=== PATIENT | female | born 1950 | race Caucasian/White ===

== ENCOUNTER 2016-05-22 12:48 | Emergency (ER) | payer MEDICARE ==
[2016-05-22 13:01] VITALS: BP 138/76
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
--- OUTSIDE RECORDS SUMMARY | 2016-05-22 13:33 | XMS REPORT | Summary of Care ---
:1950 Author Organization [facility] Address [address] [place] [id number] Care Team Providers Name Role Phone Nirmal Leung Primary Care Physician Encounter Date(s): 07/22/15 - 07/22/[address] [id number] Discharge Disposition: 01 Discharged to Home or Self Care Attending Physician: NIKOS Briones Admitting Physician: NIKOS Briones Vital Signs No data available for this [...] Erythromycin Base Active OxyCODONE Hydrochloride2 vomittin Active [id number] Medications allopurinol 100 mg oral tablet 2 tab(s), Oral, Daily, 0 Refill(s) Start Date: 10/12/13 Status: OrderedamLODIPine 5 mg oral tablet 1 tab(s), Oral, Daily, # 30 tab(s), 0 Refill(s), Start Date: 10/22/14 10:19:00 CDT Start Date: 10/22/14 Stop Date: 04/22/15 Status: Discontinuedammonium lactate 10% topical cream 1 caleb, Topical, BID, # 42 gm, 0 Refill(s), Start Date: 04/22/15 14:26:00 [employer] Start Date: 04/22/15 Status: Orderedamoxicillin-clavulanate 500 mg-125 mg oral tablet 1 tab(s), Oral, q12hr interval, # 10 tab(s), 0 Refill(s), Start Date: 07/22/15 13:24:00 CDT, Pharmacy: [place], [place] Start Date: 07/22/15 Stop Date: 07/27/15 Status: OrderedAvapro 75 mg oral tablet 1 tab(s), Oral, Daily, # 30 tab(s), 5 Refill(s), Start Date: 05/23/14 11:00:00 CDT, Pharmacy: [place], [place] Start Date: 05/23/14 Stop Date: 05/23/14 [...] Daily, 0 Refill(s), Start Date: 04/22/15 14:26:00 [employer] Start Date: 04/22/15 Stop Date: 07/22/15 Status: [...] Refill(s), Start Date: 11/22/13 13:46:00 CDT, Pharmacy: [place], [place] Start Date: 11/22/13 Stop Date: 07/09/14 Status: CompletedLasix 40 mg oral tablet 1 tab(s), Oral, Daily, 0 Refill(s) Start Date: 10/12/13 Stop Date: 11/22/13 Status: DiscontinuedLasix 40 mg oral tablet 1 tab(s), Oral, Daily, Take 1-40mg tab twice daily x3 days then resume once daily, # 33 tab(s), 11 Refill(s), Start Date: 07/09/14 14:47:53 CDT, Pharmacy: [place], [place] Special Instructions: Take 1-40mg tab twice daily x3 days then resume once daily Start Date: 07/09/14 Stop Date: 07/22/15 Status: Discontinuedlevothyroxine 25 mcg (0.025 mg) oral tablet 1 tab(s), Oral, Daily, # 30 tab(s), 0 Refill(s), Start Date: 04/22/15 14:25:00 [employer] Start Date: 04/22/15 Status: OrderedLexapro 10 mg oral tablet 1 tab(s), Oral, Daily, # 30 tab(s), 0 Refill(s), Start Date: 07/09/14 13:57:00 CDT Start Date: 07/09/14 Stop Date: 07/22/15 Status: Completedlisinopril 5 mg oral tablet 1 tab(s), Oral, Daily, # 90 tab(s), 1 Refill(s), Start Date: 05/23/14 15:42:00 CDT, Pharmacy: [place], [place] Start Date: 05/23/14 Stop Date: 10/22/14 [...] [Reference Range]: 1 Sodium Lvl [135-144 mEq/L] 134 mEq/L *LOW* (07/22/15 11:19 AM) Potassium Lvl [3.3-4.8 mEq/L] 4.5 mEq/L (07/22/15 11:19 AM) Chloride Lvl [98-107 mEq/L] 96 mEq/L *LOW* (07/22/15 11:19 AM) Bicarbonate Lvl [22-30 mmol/L] 24 mmol/L (07/22/15 11:19 AM) Anion Gap [10.0-20.0] 18.5 (07/22/15 11:19 AM) Glucose Lvl [70-108 mg/dL] 152 mg/dL *HI* (07/22/15 11:19 AM) BUN [7-21 mg/dL] 40 mg/dL *HI* (07/22/15 11:19 AM) Creatinine Lvl [0.50-1.20 mg/dL] 2.27 mg/dL *HI* (07/22/15 11:19 AM) BUN/Creat Ratio 17.6 *NA* (07/22/15 11:19 AM) eGFR AA [>=60] 26 *LOW* (07/22/15 11:19 AM) eGFR RODRÍGUEZ [>=60] 22 *LOW* (07/22/15 11:19 AM) Calcium Lvl [8.6-10.2 mg/dL] 10.2 mg/dL (07/22/15 11:19 AM) Albumin Lvl [3.5-5.2 g/dL] 3.8 g/dL (07/22/15 11:19 AM) Magnesium Lvl [1.6-2.4 mg/dL] 1.7 mg/dL (07/22/15 11:19 AM) Phosphorus Lvl [2.7-4.5 mg/dL] 4.4 mg/dL (07/22/15 11:19 AM) Estimated Creatinine Clearance 29.18 mL/min (07/22/15 12:18 PM) Immunizations No data available for this [...]
[2016-05-22 13:52] LABS: Hematocrit 39.3 % (37.0-47.0); Mean Cell Volume 82.4 fl (78-100); Mean Corpuscular Hemoglobin 27.3 pg (27-31); Mean Corpuscular Hgb Conc 33.1 g/dl (32-36); Mean Platelet Volume 10.1 fl (6.0-9.5); Neutrophil # 5.4 K/mm3 (1.3-6.0); Neutrophil % 67.7 % (42-75.0); Platelet Count 229 K/mm3 (150-450); Red Blood Count 4.77 M/mm3 (4.2-5.4); Red Cell Distribution Width 14.3 % (11.5-14.0); White Blood Count 7.9 K/mm3 (4.0-10.5)
[2016-05-22 14:03] LABS: Albumin * 3.2 gm/dl (3.4-5.0); Anion Gap 13.4 mmol/L (6.8-13.8); BUN/Creatinine Ratio 21.5 (9.0-21.6); Bilirubin, Total 0.4 mg/dL (0.0-1.1); CRP 3.2 mg/dL (0.0-0.9); Ca. Corrected For Albumin 9.1 mg/dL (8.4-10.2); Calcium * 8.8 mg/dL (7.9-10.9); Carbon Dioxide 26.8 mmol/L (24-32.6); Potassium 4.2 mmol/L (3.4-4.6); Total Protein 7.3 gm/dL (6.2-8.2)
[2016-05-22 14:29] LABS: Hemoglobin A1C 9.5 % (4.00-6.0)
--- NOTE | 2016-05-22 14:55 | ERNOTE ---
Lower Extremity HPI - Narrative Date of Service: 05/22/16 - General Lower Extremities Pain: foot: left, 1st toe: left Time Seen by Provider: 05/22/16 12:56 Source: patient Exam Limitations: no limitations - Immun/Allergies/Home Medications Immunizations: IMMUNIZATION HX Immunizations Up to Date Yes History of Influenza Vaccine No Hx Pneumococcal Vaccination No Allergies/Adverse Reactions: Allergies Allergy/AdvReac Type Severity Reaction Status Date / Time acetaminophen [From Percocet] AdvReac Mild Vomiting Verified 05/22/16 13:01 ciprofloxacin AdvReac Mild Vomiting Verified 05/22/16 13:01 erythromycin base AdvReac Mild SHAKEY Verified 05/22/16 13:01 [Erythromycin Base] omeprazole AdvReac Mild Diarrhea Verified 05/22/16 13:01 oxycodone HCl [From Percocet] AdvReac Mild Vomiting Verified 05/22/16 13:01 Home Medications: HOME MEDICATIONS Meclizine HCl 25 mg PO QID PRN 04/03/13 [Last Taken Unknown] Tramadol HCl 50 mg PO QID PRN 04/03/13 [Last Taken Unknown] Nitroglycerin [Nitrostat] 0.3 mg SL Q5MX3 01/07/14 [Last Taken Unknown] Metoclopramide HCl [Reglan] 20 mg PO QID 08/11/14 [Last Taken Unknown] Furosemide 20 mg PO DAILY 05/15/15 [Last Taken Unknown] Albuterol Sulfate [Proair Hfa] 2 puff IH Q4H PRN 12/03/15 [Last Taken Unknown] Allopurinol [Zyloprim] 200 mg PO QPM 12/03/15 [Last Taken Unknown] Ammonium Lactate [Lac-Hydrin] 1 appl TP BID 12/03/15 [Last Taken Unknown] Blood Sugar Diagnostic, Drum [Accu-Chek Compact] 1 each MC DAILY 12/03/15 [Last Taken Unknown] Glimepiride [Amaryl] 4 mg PO BID@0700,1700 12/03/15 [Last Taken Unknown] Hydrocodone/Acetaminophen [Lortab 5-325 mg Tablet] 1 each PO QID PRN 12/03/15 [ Last Taken Unknown] Levothyroxine Sodium [Synthroid] 25 mcg PO DAILY 12/03/15 [Last Taken Unknown] Metoprolol Tartrate [Lopressor] 50 mg PO BID 12/03/15 [Last Taken Unknown] Mirtazapine 7.5 mg PO HS 12/03/15 [Last Taken Unknown] Pregabalin [Lyrica] 25 mg PO BID 12/03/15 [Last Taken Unknown] Simvastatin [Zocor] 40 mg PO HS 12/03/15 [Last Taken Unknown] rOPINIRole HCL [Requip] 0.5 mg PO HS 12/03/15 [Last Taken Unknown] Cephalexin Monohydrate [Keflex] 500 mg PO QID #28 cap 05/22/16 [Last Taken Unknown] Lisinopril [Zestril] 2.5 mg PO 3XW 05/22/16 [Last Taken Unknown] Sulfamethoxazole/Trimethoprim [Bactrim Ds] 1 tab PO BID #14 tablet 05/22/16 [ Last Taken Unknown] - Pain Score Pain Score #1 Pain Score: 1 - History of Present Illness Narrative: Patient is 65 year old female patient with PMH of DM2 and MRSA who presents to ED with c/o left great toe and foot redness and swelling. Patient states she noticed redness to top of left great toe beginning last Tuesday. States she noticed "pus pocket" on cuticle area of left great toe and when pressure was applied, patient states it "popped and pus came out". States now presents with redness and swelling to left great toe and top of left foot. Denies pain, fever , chills or body aches. States blood sugars have been controlled. States she has chronic swelling in bilateral feet yet left foot slightly more swollen than left. Able to ambulate without difficulty. Date (Duration): 05/22/16 Occurred: this morning Location of Incident: home Method of Injury: Reports: no apparent injury Reason for Fall: Reports: other - patient did not fall, denies injury Loss of Consciousness: Reports: no loss of consciousness Modifying Factors - (Improves): Reports: rest Modifying Factors - (Worsens): Reports: movement Associated Symptoms: Denies: unable to bear weight, dizzy/light headedness, sensory loss, chest pain Other Injuries: Denies: none Subsequent Symptoms: Denies: sensory loss, numbness, motor loss, bowel/bladder problem Review of Systems - Review of Systems Constitutional: Absent: recent illness, fever, chills, diaphoresis, weakness, fatigue EYE: Present: no symptoms reported ENT: Present: no symptoms reported Respiratory: Absent: shortness of breath, cough Cardiology: Present: no symptoms reported. Absent: chest pain Gastrointestinal/Abdominal: Absent: nausea, vomiting, diarrhea, abdominal pain Genitourinary: Present: no symptoms reported Musculoskeletal: Present: no symptoms reported Skin: Present: change in color Neurological: Present: no symptoms reported Endocrine: Present: no symptoms reported Hematologic/Lymphatic: Present: no symptoms reported - Patient's Past Medical History Patient History - Medical: Anemia, Arthritis, Diabetes Type 2, GERD, Obesity, Renal Disease, Renal Failure Patient History - Cardiac/Respiratory: Arrhythmias, Hypertension, Hyperlipidemia , Sleep Apnea Patient History - Cancer: No Hx of Cancer Patient History - Surgical Procedures: Cholecystectomy, Colonoscopy, EGD, Tubal Ligation, T & A Patient History - Other: None - Family History Mother Family History - Medical: Diabetes Type 2 Family History - Cardiac/Respiratory: No pertinent hx Father Family History - Medical: History Unknown Family History - Cardiac/Respiratory: History Unknown, Coronary Heart Disease, Other dad Family History - Medical: Family History - Cardiac/Respiratory: Myocardial Infarction - Social History Living Situations: spouse Abuse History: No History of abuse Psych History: Hx of Depression Smoking Status: Never smoker Do you dip or chew tobacco: No Alcohol Use: none Drug Use: none - Immunizations Immunizations Up to Date: Yes Hx Pneumococcal Vaccination: No History of Influenza Vaccine: No Physical Exam - Physical Exam General Appearance: Present: wd/wn, alert, no apparent distress Eye Exam: Normal inspection: bilateral, PERRL: bilateral Ears, Nose, Throat: Present: normal ENT inspection Neck: Present: normal inspection, nontender Respiratory: Present: no respiratory distress, normal breath sounds, no accessory muscle use, chest nontender, lungs clear Cardiovascular/Chest: Present: regular rate, rhythm, no murmur, normal peripheral pulses Peripheral Pulses: N=norm/S=strong/W=weak/B=bound/A=absent: Radial (R): Normal, Radial (L): Normal Gastrointestinal/Abdominal: Present: normal bowel sounds, nontender, nondistended, soft, no organomegaly Rectal Exam: Present: deferred Back Exam: Present: normal inspection, normal range of motion, no CVA tenderness , no vertebral tenderness Extremity Exam: Present: normal inspection, non-tender, normal range of motion, no edema, other - chronic bilateral pedal swelling Neurological Exam: Present: alert, oriented, normal mood/affect, no motor/ sensory deficits Skin Exam: Present: normal color, warm/dry, other - redness to left great toe and top of left foot Pelvic Exam: Present: deferred ED Progress - Results and Orders Patient's Lab Results:: I have reviewed the patient's lab results. - Vital Signs Patient's Vital Signs:: I have reviewed the patient's vital signs. Vital Signs: Vital Signs 05/22/16 12:54 Temperature 36.2 C L Pulse Rate 101 H Respiratory 18 Rate Blood Pressure 138/76 O2 Sat by Pulse 96 Oximetry - X-Ray X-Ray #1 X-Ray: foot Interpretation: Reviewed by me X-ray Comments: No obvious fracture or deformity - Progress/Reassessment Chief Complaint: Foot Injury/Pain Progress:: Re-examined Departure Clinical Impression: MRSA cellulitis Cellulitis Qualifiers: Site of cellulitis: extremity Site of cellulitis of extremity: lower extremity Laterality: left Qualified Code(s): L03.116 - Cellulitis of left lower limb - Departure Disposition: Home Follow Up Needed Condition: Good Instructions: Diabetes and Foot Care, Cellulitis, Adult, [id number] Additional Instructions: Return tomorrow if redness/swelling above black line on left foot. Take antibiotics as directed, begin Bactrim first dose tonight and begin Keflex tomorrow. Soak left foot twice daily in warm/soapy water. Return to ED if redness/swelling worsens or begin to experience fever, chills, body aches or notice red streaks up leg. Call physician Tuesday for follow up later in the week Referrals: Neel Elise MD [Primary Care Provider] - Prescriptions: Cephalexin Monohydrate [Keflex] 500 mg PO QID #28 cap Sulfamethoxazole/Trimethoprim [Bactrim Ds] 1 tab PO BID #14 tablet
== END 2016-05-22 14:50 | disposition home or self-care (01) ==
LOC: ER 12:48
DX: L03.116 Cellulitis of left lower limb (principal); B95.62 Methicillin resistant Staphylococcus aureus infection as the cause of diseases classified elsewhere; E11.9 Type 2 diabetes mellitus without complications; E78.5 Hyperlipidemia, unspecified; I10 Essential (primary) hypertension; I49.9 Cardiac arrhythmia, unspecified; N19 Unspecified kidney failure

== ENCOUNTER 2016-11-16 06:57 | Day surgery (SDC) | payer MEDICARE ==
[~2016-11-16 06:57] MED LIST: RINGER'S SOLUTION,LACTATED 1,000 ML IV PRN
[2016-11-16 07:17] LABS: Hematocrit 40.7 % (37.0-47.0); Hemoglobin 13.8 gm/dL (12.5-16.0); Mean Cell Volume 84.8 fl (78-100); Mean Corpuscular Hemoglobin 28.8 pg (27-31); Mean Corpuscular Hgb Conc 33.9 g/dl (32-36); Mean Platelet Volume 10.2 fl (6.0-9.5); Neutrophil # 6.1 K/mm3 (1.3-6.0); Neutrophil % 60.4 % (42-75.0); Platelet Count 223 K/mm3 (150-450); Red Cell Distribution Width 13.7 % (11.5-14.0)
[2016-11-16] MEDS: RINGER'S SOLUTION,LACTATED 1,000 ML IV ONE (07:55)
[2016-11-16] MEDS ORDERED: IBUPROFEN 600 MG TABLET PO PRN (08:44)
[2016-11-16] MEDS: ACETAMINOPHEN 500 MG TABLET PO ONE (09:48)
--- NOTE | 2016-11-16 09:54 | OR ---
Operative Report - Dictated Report Narrative: Operative Report 11/16/16 Hysteroscopy Dilatation and Curettage Preoperative Diagnosis: Postmenopausal Bleeding Postoperative Diagnosis: Postmenopausal Bleeding, Cervical Stenosis Procedure: Hysteroscopy Dilatation and Curettage Surgeon: Ramya Walton M.D. Anesthesia: Walt Malloy CRNA, IV sedation Findings: Cervical stenosis. Sound 10 cm. There was no evidence of submucosal fibroid. Questionable presence of polypoid tissue. Fluids: 150 ml EBL: Minimal Drains: None Complications: None Condition: Stable Pathology: Endometrial curettings Procedure: The patient was taken to the operating room with IV fluids running. She was placed in the dorsal lithotomy position after anesthesia was induced. A bivalve speculum was placed in the vagina. The anterior lip of the cervix was grasped with a single-tooth tenaculum. Uterine sound was unable to pass. 2.5 mm hysteroscope used to navigate through the endometrial canal. Uterine sound was 11 cm with hysteroscope. The cervix was dilated with Jaiv dilators. The hysteroscope was introduced into the endometrial cavity. The cavity was distended with normal saline. [place] were visualized bilaterally. There was a questionable polyp but no evidence of submucosal fibroid. The hysteroscope was removed. The cavity was sharply curetted without difficulty. The hysteroscope was once again introduced into the cavity. The cavity was completely curetted. The hysteroscope was removed. The single-tooth tenaculum was removed. Sites were hemostatic. The speculum was removed from the vagina. Sponge counts were correct 2. The patient tolerated the procedure well.
[2016-11-16 11:02] VITALS: BP 136/74
== END 2016-11-16 06:58 | disposition home or self-care (01) ==
LOC: AMB 06:57
PROVIDERS: ATTEND Obstetrics & Gynecology
PROC: 0UDB8ZX Extraction of Endometrium, Via Natural or Artificial Opening Endoscopic, Diagnostic (ICD-10-PCS; principal; 2016-11-16 08:00)
DX: N95.0 Postmenopausal bleeding (principal); N88.2 Stricture and stenosis of cervix uteri; I12.9 Hypertensive chronic kidney disease with stage 1 through stage 4 chronic kidney disease, or unspecified chronic kidney disease; E11.22 Type 2 diabetes mellitus with diabetic chronic kidney disease; N18.3 Chronic kidney disease, stage 3 (moderate); J45.909 Unspecified asthma, uncomplicated; D63.1 Anemia in chronic kidney disease; K21.9 Gastro-esophageal reflux disease without esophagitis; E78.5 Hyperlipidemia, unspecified; E03.9 Hypothyroidism, unspecified; G47.33 Obstructive sleep apnea (adult) (pediatric); E66.01 Morbid (severe) obesity due to excess calories; Z68.41 Body mass index [BMI] 40.0-44.9, adult

== ENCOUNTER 2016-12-15 08:42 | Day surgery (SDC) | payer MEDICARE ==
[2016-12-15] MEDS ORDERED: RINGER'S SOLUTION,LACTATED 1,000 ML IV ONE (10:44)
[2016-12-15] MEDS ORDERED: RINGER'S SOLUTION,LACTATED 1,000 ML IV PRN (11:41)
[2016-12-15] MEDS ORDERED: CEFOXITIN SODIUM 2 GM in DEXTROSE 5 % IN WATER 100 ML IV ONE ×2 (12:30)
[2016-12-15 12:55] VITALS: BP 135/77
--- NOTE | 2016-12-15 18:09 | OR ---
Operative Report - Dictated Report Narrative: OPERATIVE REPORT DATE OF OPERATION: 12/15/2016 PREOPERATIVE DIAGNOSIS: Positive Cologuard test. POSTOPERATIVE DIAGNOSIS: 2mm polyp the cecum, 3 mm polyp at 45 cm, 3 mm polyp at 25 cm, and 4 mm polyp at 20 cm (pathology pending). Diverticulosis OPERATION: Colonoscopy with hot biopsy forceps polypectomies in the cecum, at 45 cm, and 25 cm. Snare polypectomy at 20 cm SURGEON: Elif Miller MD ANESTHESIA: TAN Campos CRNA INDICATIONS FOR PROCEDURE: The patient is a 65-year-old female referred by Dr. Jany Klein. Her last colonoscopy in 2006 was normal. She recently submitted a Cologuard test which was positive. There is no family history of colon cancer. She moves her bowels 3 times a day. FINDINGS: 2 mm polyp adjacent to the ileocecal valve. 3 mm polyp at 45 cm. 3 mm polyp at 25 cm. 4 mm polyp at 20 cm (pathology pending) NARRATIVE OF PROCEDURE: The patient was identified in the holding area, and prior to the administration of anesthetic, a multidisciplinary timeout was observed. With the patient in the left lateral position and after the administration of intravenous sedation, the perineum was inspected. There was no evidence of pilonidal disease or skin breakdown. The external appearance of the anus was normal. Sphincter tone was good. The flexible fiberoptic colonoscope was inserted into the rectum which was insufflated with air. The rectal mucosa and submucosal vascular pattern appeared normal, the prep was seen to be complete. The scope was advanced through the sigmoid colon, up the descending colon, and around the splenic flexure where the triangular haustral architecture of the transverse colon was seen. The scope was advanced across the transverse colon, around the hepatic flexure to the cecum, where the confluence of tenia and the ileocecal valve were identified. Adjacent to the ileocecal valve was a 2 mm area of polypoid change. This was biopsied and then thoroughly destroyed with electrocautery. The site was seen to be complete and hemostatic. The mucosa at this level appeared otherwise normal. The scope was then slowly withdrawn in a circular fashion so that all aspects of colonic mucosa were inspected. The colon was normal in course and caliber. The haustral architecture appeared well preserved throughout with no evidence of external compression. The mucosa and submucosal vascular pattern appeared normal, specifically there was no gross evidence to suggest colitis or inflammatory bowel disease and no AV malformations were seen. Sigmoid diverticulosis was noted. 3 mm polyps were encountered at 45 cm and 25 cm. These were biopsied and then thoroughly destroyed with electrocautery. Both sites appeared complete and hemostatic. An additional 4 mm adenomatous appearing polyp was encountered at 20 cm. This was removed with cautery snare. The base appeared complete and hemostatic. The polyp was retrieved and submitted to pathology. The scope was gradually withdrawn to the level of the rectum. As much insufflated air as possible was removed. The scope was withdrawn from the patient and the procedure terminated. The patient tolerated the anesthetic and procedure well without complication and was transferred back to the ambulatory surgery area awake and in stable condition. The patient remained stable throughout a period of postoperative observation. She initially complained of abdominal discomfort. She was given a single dose of IV Mefoxin to cover the instrumentation. She later reported her abdominal pain was better. She was able to tolerate by mouth intake, and was up without assistance. I shared the operative findings with the patient and her and she was given copies of the photographs which appear in the medical record. She was discharged home with instructions not to engage in hazardous activity today, but may resume normal activity tomorrow, and advance diet as tolerated. She is to continue those medications as listed in the history and physical exam. I made arrangements to contact her with the biopsy reports and will make additional recommendations for treatment and follow-up based upon those results. Reviewed and electronically signed
== END 2016-12-15 08:43 | disposition home or self-care (01) ==
LOC: AMB 08:42
PROVIDERS: ATTEND Surgery
PROC: 0DBE8ZX Excision of Large Intestine, Via Natural or Artificial Opening Endoscopic, Diagnostic (ICD-10-PCS; 2016-12-15)
PROC: 0DBE8ZX Excision of Large Intestine, Via Natural or Artificial Opening Endoscopic, Diagnostic (ICD-10-PCS; 2016-12-15)
PROC: 0DBH8ZX Excision of Cecum, Via Natural or Artificial Opening Endoscopic, Diagnostic (ICD-10-PCS; principal; 2016-12-15 09:50)
DX: Z12.11 Encounter for screening for malignant neoplasm of colon (principal); K63.5 Polyp of colon; D37.4 Neoplasm of uncertain behavior of colon; K57.30 Diverticulosis of large intestine without perforation or abscess without bleeding; I12.9 Hypertensive chronic kidney disease with stage 1 through stage 4 chronic kidney disease, or unspecified chronic kidney disease; E11.22 Type 2 diabetes mellitus with diabetic chronic kidney disease; N18.3 Chronic kidney disease, stage 3 (moderate); E78.5 Hyperlipidemia, unspecified; E03.9 Hypothyroidism, unspecified; J45.909 Unspecified asthma, uncomplicated; D63.1 Anemia in chronic kidney disease; G47.33 Obstructive sleep apnea (adult) (pediatric); E66.01 Morbid (severe) obesity due to excess calories; Z68.42 Body mass index [BMI] 45.0-49.9, adult

== ENCOUNTER 2019-01-04 04:41 | Inpatient (IN) ==
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
[2019-01-04] MEDS ORDERED: METOPROLOL TARTRATE 1 MG/ML AMPUL IV ONE (04:57)
[2019-01-04 05:01] LABS: Hematocrit 37.7 % (37.0-47.0); Hemoglobin 11.7 gm/dL (12.5-16.0); Mean Cell Volume 94.3 fl (78-100); Mean Corpuscular Hemoglobin 29.3 pg (27-31); Mean Platelet Volume 9.3 fl (8-12.5); Neutrophil # 5.8 K/mm3 (1.3-6.0); Neutrophil % 63.8 % (42-75.0); Platelet Count 218 K/mm3 (150-450); Red Cell Distribution Width 16.9 % (11.5-14.0); White Blood Count 9.1 K/mm3 (4.0-10.5)
[2019-01-04 05:21] LABS: ALT 13 U/L (19-67); AST 17 U/L (0-48); Albumin * 2.9 gm/dl (3.4-5.0); Alkaline Phosphatase * 63 U/L (50-170); BNP * 4448 pg/mL (5-325); Bilirubin, Total 0.5 mg/dL (0.0-1.1); Blood Urea Nitrogen 23 mg/dL (3-23); Ca. Corrected For Albumin 9.5 mg/dL (8.4-10.2); Calcium * 8.9 mg/dL (7.9-10.9); Carbon Dioxide 28.5 mmol/L (24-32.6); Chloride 104 mmol/L (97-106); Glucose * 197 mg/dL (70-110); Potassium 3.5 mmol/L (3.4-4.6); Sodium 141 mmol/L (132-142); Total Protein 7.8 gm/dL (6.2-8.2); Troponin I Less than 0.017 ng/mL (0.00-0.10)
[2019-01-04] MEDS ORDERED: FUROSEMIDE 10 MG/ML VIAL IV ONE ×2 (05:37→11:00)
[2019-01-04 06:14] LABS: Urine Bilirubin Negative (NEGATIVE); Urine Ketone Negative (NEGATIVE); Urine Nitrite Negative (NEGATIVE); Urine Protein 15 mg/dL (NEGATIVE); Urine Specific Gravity 1.015 SP.GR. (1.005-1.010); Urine Urobilinogen Normal (NORMAL)
[2019-01-04 06:23] LABS: Urine Appearance Clear (CLEAR); Urine Bacteria TRACE; Urine Blood 5 /ul (NEGATIVE); Urine Color Yellow; Urine RBC 0-5 /hpf (0-5)
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
[2019-01-04] MEDS ORDERED: ACETAMINOPHEN 500 MG TABLET PO PRN (10:28)
[2019-01-04] MEDS ORDERED: traMADol HCL 50 MG TABLET PO PRN (10:28)
[2019-01-04] MEDS ORDERED: POLYVINYL ALCOHOL 150 DROP BTL OP PRN (10:28)
[2019-01-04] MEDS ORDERED: AMMONIUM LACTATE 225 APPL BTL TP PRN (10:28)
[2019-01-04] MEDS ORDERED: METOPROLOL TARTRATE 50 MG TABLET PO SCH (10:30)
[2019-01-04] MEDS ORDERED: POTASSIUM CHLORIDE 20 MEQ TABLET.SA PO ONE (11:00)
[2019-01-04] MEDS: LEVOTHYROXINE SODIUM 25 MCG TABLET PO SCH (11:15)
[2019-01-04 16:19] LABS: BUN/Creatinine Ratio 16.3 (9.0-21.6); Calcium * 9.7 mg/dL (7.9-10.9); Carbon Dioxide 31.8 mmol/L (24-32.6); Estimated Creat Clear 27.6; Potassium 3.8 mmol/L (3.4-4.6)
[2019-01-04] MEDS: ALLOPURINOL 100 MG TABLET PO SCH (17:39)
[2019-01-04] MEDS ORDERED: GLIMEPIRIDE 2 MG TABLET ONE (20:40)
[2019-01-04] MEDS: APIXABAN 2.5 MG TABLET PO SCH (20:43)
[2019-01-04] MEDS: rOPINIRole HCL 0.5 MG TABLET PO SCH (20:44)
[2019-01-04] MEDS: GLIMEPIRIDE 4 MG TABLET PO SCH (20:44)
[2019-01-04] MEDS: METOPROLOL TARTRATE 25 MG TABLET PO SCH (20:44)
[2019-01-04] MEDS: SIMVASTATIN 40 MG TABLET PO SCH (20:44)
[2019-01-04] MEDS: ALBUTEROL SULFATE 2.5 MG/0.5 ML VIAL.NEB IH PRN (22:26)
[2019-01-05] MEDS ORDERED: POTASSIUM CHLORIDE 20 MEQ TABLET.SA PO ONE (06:34)
[2019-01-05] MEDS ORDERED: FUROSEMIDE 10 MG/ML VIAL IV ONE (06:34)
[2019-01-05] MEDS: LEVOTHYROXINE SODIUM 25 MCG TABLET PO SCH (06:51)
[2019-01-05 07:06] LABS: Anion Gap 9.2 mmol/L (6.8-13.8); Calcium * 8.8 mg/dL (7.9-10.9); Carbon Dioxide 30.8 mmol/L (24-32.6)
[2019-01-05] MEDS: GLIMEPIRIDE 4 MG TABLET PO SCH ×2 (07:50→20:21)
[2019-01-05] MEDS: FLUTICASONE PROPIONATE 120 SPRAY INHALER NS SCH (08:27)
[2019-01-05] MEDS: APIXABAN 2.5 MG TABLET PO SCH ×2 (08:27→20:21)
[2019-01-05] MEDS: METOPROLOL TARTRATE 25 MG TABLET PO SCH ×2 (08:27→20:22)
[2019-01-05] MEDS: LISINOPRIL 2.5 MG TABLET PO SCH (08:34)
--- NOTE | 2019-01-05 10:22 | PN ---
Subjective - Date and Time Seen Date: 01/05/19 Time: 10:14 Subjective Narrative: patient is still SOB with any exertion. she is back to NSR in the 70's with PAC's but would shoot up to the 120-130's with exertion. Objective - Review of Systems Generalized/Overall Review: Denies: Weakness, Chills, Fever EENTM: Denies: Blurred Vision Respiratory: Reports: Cough, Shortness of Breath Cardiac: Reports: Edema. Denies: Chest Pain, Palpitations Abdominal: Denies: Nausea, Vomiting Genitourinary Symptoms: Denies: Urgency, Frequency Neurological: Denies: Headache Skin: Denies: Lesions, Rash Endocrine: Denies: Intolerance to Cold, Intolerance to Heat Misc: All systems neg except as marked - Vitals Vitals: Last Vital Signs Temp 36.3 C 01/05/19 06:23 Pulse 71 01/05/19 08:34 Resp 20 01/05/19 06:23 BP 131/59 01/05/19 08:34 Pulse Ox 93 01/05/19 06:23 - Abnormal Lab Findings Abnormal Lab Findings: Abnormal Lab Results 01/04/19 01/05/19 Range/Units 16:10 06:30 BUN 24 H 29 H (3-23) mg/dL Creatinine 1.47 H 1.45 H (0.4-1.4) mg/dL Est GFR (Non-Af Amer) 38 L 38 L (60-130) mL/min Random Glucose 191 H 170 H (70-110) mg/dL - Exam Constitutional: Present: Alert, Oriented x3, Cooperative, Morbidly obese ENT Exam: Present: hearing grossly normal Neck: Present: supple. Absent: lymphadenopathy (R), lymphadenopathy (L) Respiratory: Present: decreased breath sounds, No rales, No wheezing Cardiovascular/Chest: Present: regular rate, rhythm, no JVD, no murmur Abdomen: Present: Normal bowel sounds, soft, nontender, obese Extremity: Present: no calf tenderness, lower extremity edema Assessment/Plan Plan Narrative: I have increased her metoprolol to 75 mg PO BID yesterday. Will try to get in touch with Cardiology/EPS Dr. Uriarte to see if I should start her back on Flecainide. ADDENDUM: He agrees with restarting her at 50 mg PO BID and monitor her 1-2 days for improvement. We discussed the Echo findings done in 2017. I will transfer her to acute status. - Problems/Diagnosis (1) FERNÁNDEZ (dyspnea on exertion) Problem: Acute (2) CHF (congestive heart failure) Problem: Acute Qualifiers: Heart failure type: combined systolic and diastolic Heart failure chronicity: acute Qualified Code(s): I50.41 - Acute combined systolic (con gestive) and diastolic (congestive) heart failure (3) Atrial fibrillation Problem: Acute Qualifiers: Atrial fibrillation type: paroxysmal Qualified Code(s): I48.0 - Paroxysmal atrial fibrillation (4) Hyperlipidemia Problem: Chronic Qualifiers: (5) Hypertension Problem: Chronic Qualifiers: (6) Restless legs syndrome (RLS) Problem: Chronic (7) YOSSI on CPAP Problem: Chronic (8) Morbid obesity Problem: Chronic (9) CRF (chronic renal failure) Problem: Chronic Qualifiers: (10) Diabetes mellitus Problem: Chronic Qualifiers:
[2019-01-05] MEDS: FLECAINIDE ACETATE 100 MG TABLET PO SCH ×2 (10:45→22:50)
[2019-01-05] MEDS: INSULIN LISPRO 100 UNITS/ML VIAL SC SCH (17:01)
[2019-01-05] MEDS: ALLOPURINOL 100 MG TABLET PO SCH (17:01)
[2019-01-05] MEDS: ALBUTEROL SULFATE 2.5 MG/0.5 ML VIAL.NEB IH PRN (19:03)
[2019-01-05] MEDS ORDERED: guaiFENesin/DEXTROMETHORPHAN SYRUP PO PRN (19:34)
[2019-01-05] MEDS: NYSTATIN 15 APPL BTL TP SCH ×2 (20:21→20:26)
[2019-01-05] MEDS: SIMVASTATIN 40 MG TABLET PO SCH (20:22)
[2019-01-05] MEDS: rOPINIRole HCL 0.5 MG TABLET PO SCH (20:22)
[2019-01-05] MEDS: BENZONATATE 100 MG CAPSULE PO PRN (20:23)
[2019-01-06] MEDS: BENZONATATE 100 MG CAPSULE PO PRN ×2 (02:06→21:36)
[2019-01-06 06:40] LABS: BUN/Creatinine Ratio 27.1 (9.0-21.6); Calcium * 8.8 mg/dL (7.9-10.9); Carbon Dioxide 34.4 mmol/L (24-32.6); Estimated Creat Clear 26.2; Potassium 4.4 mmol/L (3.4-4.6)
[2019-01-06] MEDS: GLIMEPIRIDE 4 MG TABLET PO SCH ×2 (07:06→21:35)
[2019-01-06] MEDS: INSULIN LISPRO 100 UNITS/ML VIAL SC SCH ×3 (07:06→16:33)
[2019-01-06] MEDS: LEVOTHYROXINE SODIUM 25 MCG TABLET PO SCH (07:06)
[2019-01-06] MEDS: FUROSEMIDE 40 MG TABLET PO SCH (08:28)
[2019-01-06] MEDS: POTASSIUM CHLORIDE 10 MEQ TABLET.SA PO SCH (08:28)
[2019-01-06] MEDS: METOPROLOL TARTRATE 25 MG TABLET PO SCH (08:28)
[2019-01-06] MEDS: APIXABAN 2.5 MG TABLET PO SCH ×2 (08:28→21:35)
[2019-01-06] MEDS: NYSTATIN 15 APPL BTL TP SCH ×2 (08:30→21:35)
[2019-01-06] MEDS: FLUTICASONE PROPIONATE 120 SPRAY INHALER NS SCH (08:30)
[2019-01-06] MEDS: FLECAINIDE ACETATE 100 MG TABLET PO SCH ×2 (10:23→21:36)
[2019-01-06] MEDS: ALBUTEROL SULFATE 2.5 MG/0.5 ML VIAL.NEB IH PRN ×2 (10:33→17:01)
--- NOTE | 2019-01-06 14:30 | PN ---
Subjective - Date and Time Seen Date: 01/06/19 Time: 09:30 Subjective Narrative: Fozia Russell is a 68-year-old female admitted for congestive heart failure and atrial fibrillation. She was admitted yesterday January 05. She has been diuresed and started on breathing treatments. She is still wheezy and has dyspnea with even minor exertion this morning. Her admission lab: Shows essentially normal CBC. The BNP was 4448 on admission and was 1900 yesterday. Glucose was 184 and EGFR of 35. Objective - Review of Systems Generalized/Overall Review: Reports: Weakness, Malaise, Fatigue EENTM: Reports: No Symptoms Reported Respiratory: Reports: Cough, Shortness of Breath, Wheezing Cardiac: Reports: No Symptoms Reported Abdominal: Reports: No Symptoms Reported Genitourinary Symptoms: Reports: No Symptoms Reported Musculoskeletal Complaints: Reports: No Symptoms Reported Neurological: Reports: No Symptoms Reported Skin: Reports: No Symptoms Reported Endocrine: Reports: No Symptoms Reported - Vitals Vitals: Last Vital Signs Temp 35.7 C L 01/06/19 10:00 Pulse 63 01/06/19 10:43 Resp 26 H 01/06/19 10:43 BP 128/75 01/06/19 10:00 Pulse Ox 92 L 01/06/19 10:33 - Abnormal Lab Findings Abnormal Lab Findings: Abnormal Lab Results 01/06/19 Range/Units 05:50 Carbon Dioxide 34.4 H (24-32.6) mmol/L BUN 42 H (3-23) mg/dL Creatinine 1.55 H (0.4-1.4) mg/dL Est GFR (Non-Af Amer) 35 L (60-130) mL/min BUN/Creatinine Ratio 27.1 H (9.0-21.6) Random Glucose 184 H (70-110) mg/dL B-Natriuretic Peptide 1903 H (5-325) pg/mL - Exam Constitutional: Present: Alert, Oriented x3, Cooperative, Well developed, Well nourished, No distress ENT Exam: Present: normal ENT inspection, hearing grossly normal, pharynx normal, TMs normal Neck: Present: non-tender, full range of motion Breasts: Present: Exam deferred Respiratory: Present: chest non-tender, accessory muscle use, wheezing Cardiovascular/Chest: Present: normal peripheral pulses, regular rate, rhythm, no chest tenderness, no edema, no gallop, no JVD, no murmur, no rub Abdomen: Present: Normal bowel sounds, soft, nontender, nondistended, no rebound tenderness, no hepatospenomegaly, no masses, obese - Morbidly obese with BMI of 55.9 /Rectal: Present: Exam deferred, External genitalia normal Extremity: Present: normal range of motion, non-tender, normal inspection, no pedal edema, no calf tenderness, normal capillary refill Skin Exam: Present: normal color, warm/dry, no cyanosis Lymphatic: Present: no adenopathy Appearance: Present: appropriate appearance, appropriate insight, neat, no memory impairment Eye contact: Present: cooperative, good eye contact, normal speech Thoughts: Present: normal thought pattern, no apparent hallucination Assessment/Plan Plan Narrative: 1. Repeat CBC and CMP for tomorrow 2. EKG tomorrow 3. Continue current therapy through the weekend. - Problems/Diagnosis (1) Asthma Problem: Acute (2) CHF (congestive heart failure) Problem: Acute Qualifiers: Heart failure type: combined systolic and diastolic Heart failure chronicity: acute Qualified Code(s): I50.41 - Acute combined systolic (congestive) and diastolic (congestive) heart failure (3) Atrial fibrillation Problem: Acute Qualifiers: Atrial fibrillation type: paroxysmal Qualified Code(s): I48.0 - Paroxysmal atrial fibrillation (4) FERNÁNDEZ (dyspnea on exertion) Problem: Acute
[2019-01-06] MEDS: ALLOPURINOL 100 MG TABLET PO SCH (17:06)
[2019-01-06] MEDS: METOPROLOL TARTRATE 25 MG, METOPROLOL TARTRATE 50 MG PO SCH ×2 (21:35)
[2019-01-06] MEDS: rOPINIRole HCL 0.5 MG TABLET PO SCH (21:36)
[2019-01-06] MEDS: SIMVASTATIN 40 MG TABLET PO SCH (21:36)
[2019-01-07] MEDS: ALBUTEROL SULFATE 2.5 MG/0.5 ML VIAL.NEB IH PRN ×2 (01:06→08:20)
[2019-01-07] MEDS: LEVOTHYROXINE SODIUM 25 MCG TABLET PO SCH (07:00)
[2019-01-07] MEDS: INSULIN LISPRO 100 UNITS/ML VIAL SC SCH ×3 (07:00→16:58)
[2019-01-07] MEDS: GLIMEPIRIDE 4 MG TABLET PO SCH ×2 (07:00→20:01)
[2019-01-07] MEDS: FUROSEMIDE 40 MG TABLET PO SCH (08:14)
[2019-01-07] MEDS: FLUTICASONE PROPIONATE 120 SPRAY INHALER NS SCH (08:14)
[2019-01-07] MEDS: METOPROLOL TARTRATE 25 MG, METOPROLOL TARTRATE 50 MG PO SCH ×4 (08:14→20:02)
[2019-01-07] MEDS: NYSTATIN 15 APPL BTL TP SCH ×2 (08:14→20:01)
[2019-01-07] MEDS: POTASSIUM CHLORIDE 10 MEQ TABLET.SA PO SCH (08:14)
[2019-01-07] MEDS: APIXABAN 2.5 MG TABLET PO SCH ×2 (08:14→20:02)
[2019-01-07] MEDS: FLECAINIDE ACETATE 100 MG TABLET PO SCH ×2 (10:38→22:47)
[2019-01-07] MEDS ORDERED: FUROSEMIDE 10 MG/ML VIAL IV ONE (11:40)
--- NOTE | 2019-01-07 11:58 | PN ---
Subjective - Date and Time Seen Date: 01/07/19 Time: 11:15 Subjective Narrative: Fozia Russell seems better this morning. She feels like she may be breathing about the same as yesterday and she does get dyspneic with minor exertion. Clinically however her lungs are much clear although there are still some crackles bilaterally. She is not as tachypneic today. Her deep breaths are still shallow but about the same as yesterday. She is looking forward to going to REhab to get stronger and better. Her legs remain very swollen. I will diurese again today. Objective - Review of Systems Generalized/Overall Review: Reports: Weakness EENTM: Reports: No Symptoms Reported Respiratory: Reports: Cough, Shortness of Breath, Wheezing Cardiac: Reports: No Symptoms Reported Abdominal: Reports: No Symptoms Reported Genitourinary Symptoms: Reports: No Symptoms Reported Musculoskeletal Complaints: Reports: No Symptoms Reported Neurological: Reports: No Symptoms Reported Skin: Reports: No Symptoms Reported Endocrine: Reports: No Symptoms Reported - Vitals Vitals: Last Vital Signs Temp 35.8 C L 01/07/19 10:15 Pulse 62 01/07/19 10:15 Resp 24 H 01/07/19 10:15 BP 140/65 01/07/19 10:15 Pulse Ox 92 L 01/07/19 10:15 - Exam Constitutional: Present: Alert, Oriented x3, Cooperative, Well developed, Well nourished, No distress, Morbidly obese ENT Exam: Present: normal ENT inspection, hearing grossly normal, pharynx normal, TMs normal Neck: Present: non-tender, full range of motion, supple Breasts: Present: Exam deferred Respiratory: Present: chest non-tender, no accessory muscle use, decreased breath sounds, crackles, wheezing, other - Tidal volume seems shallow. Cardiovascular/Chest: Present: normal peripheral pulses, no chest tenderness, no gallop, no JVD, no murmur, no rub, irregularly irregular, edema Abdomen: Present: Normal bowel sounds, soft, nontender, nondistended, no rebound tenderness, no hepatospenomegaly, no masses, obese /Rectal: Present: Exam deferred Extremity: Present: lower extremity edema Skin Exam: Present: normal color, warm/dry, no cyanosis Lymphatic: Present: no adenopathy Neurologic: Present: motion picture cameraman II-XII nml as tested, no motor/sensory deficits, normal mood/affect, oriented x 3 Appearance: Present: appropriate appearance, appropriate insight, neat, no memory impairment Eye contact: Present: cooperative, good eye contact, normal speech Thoughts: Present: normal thought pattern, no apparent hallucination Assessment/Plan Plan Narrative: 1. Lasix 40mg IVP today ~ noon 2. cbc, cmp tomorrow morning. 3. Dr. Flanagan to resume medical management tomorrow morning. - Problems/Diagnosis (1) Asthma Problem: Acute (2) CHF (congestive heart failure) Problem: Acute Qualifiers: Heart failure type: combined systolic and diastolic Heart failure chronicity: acute Qualified Code(s): I50.41 - Acute combined systolic (congestive) and diastolic (congestive) heart failure (3) Atrial fibrillation Problem: Acute Qualifiers: Atrial fibrillation type: paroxysmal Qualified Code(s): I48.0 - Paroxysmal atrial fibrillation (4) FERNÁNDEZ (dyspnea on exertion) Problem: Acute (5) Morbid obesity with BMI of 50.0-59.9, adult Problem: Acute
[2019-01-07] MEDS: ALLOPURINOL 100 MG TABLET PO SCH (17:17)
[2019-01-07] MEDS ORDERED: ALBUTEROL SULFATE/IPRATROPIUM 3 ML NEBU IH SCH (19:30)
[2019-01-07] MEDS: ALBUTEROL SULFATE/IPRATROPIUM 3 ML NEBU IH SCH (19:42)
[2019-01-07] MEDS: rOPINIRole HCL 0.5 MG TABLET PO SCH (20:02)
[2019-01-07] MEDS: BENZONATATE 100 MG CAPSULE PO PRN (20:03)
[2019-01-07] MEDS: SIMVASTATIN 40 MG TABLET PO SCH (20:03)
[2019-01-08] MEDS: ALBUTEROL SULFATE/IPRATROPIUM 3 ML NEBU IH SCH ×3 (06:01→18:09)
[2019-01-08] MEDS: LEVOTHYROXINE SODIUM 25 MCG TABLET PO SCH (07:31)
[2019-01-08] MEDS: INSULIN LISPRO 100 UNITS/ML VIAL SC SCH ×3 (07:31→17:29)
[2019-01-08] MEDS: GLIMEPIRIDE 4 MG TABLET PO SCH ×2 (07:31→20:36)
[2019-01-08] MEDS: LISINOPRIL 2.5 MG TABLET PO SCH (08:25)
[2019-01-08] MEDS: POTASSIUM CHLORIDE 10 MEQ TABLET.SA PO SCH (08:25)
[2019-01-08] MEDS: METOPROLOL TARTRATE 25 MG, METOPROLOL TARTRATE 50 MG PO SCH ×4 (08:25→20:36)
[2019-01-08] MEDS: FUROSEMIDE 40 MG TABLET PO SCH (08:26)
[2019-01-08] MEDS: APIXABAN 2.5 MG TABLET PO SCH ×2 (08:26→20:36)
[2019-01-08] MEDS: FLUTICASONE PROPIONATE 120 SPRAY INHALER NS SCH (08:26)
--- NOTE | 2019-01-08 08:26 | PN ---
Subjective - Date and Time Seen Date: 01/08/19 Time: 08:22 Subjective Narrative: Fozia still complaining of weakness and shortness of breath with exertion. Reviewing her telemetry strips over the weekend since starting flecainide she has been in the upper 50s to 75 bpm in sinus rhythm. Objective - Review of Systems Generalized/Overall Review: Reports: Weakness. Denies: Chills, Fever EENTM: Denies: Blurred Vision Respiratory: Reports: Cough, Shortness of Breath. Denies: Wheezing Cardiac: Reports: Edema. Denies: Chest Pain, Palpitations Abdominal: Denies: Nausea, Vomiting Genitourinary Symptoms: Denies: Urgency, Frequency Musculoskeletal Complaints: Reports: Joint Pain Neurological: Denies: Headache Skin: Denies: Lesions, Rash Endocrine: Reports: Intolerance to Cold, Intolerance to Heat Misc: All systems neg except as marked - Vitals Vitals: Last Vital Signs Temp 36.3 C 01/08/19 06:56 Pulse 62 01/08/19 06:56 Resp 24 H 01/08/19 06:56 BP 145/84 01/08/19 06:56 Pulse Ox 93 01/08/19 06:56 - Exam Constitutional: Present: Oriented x3, Cooperative, Morbidly obese ENT Exam: Present: hearing grossly normal Neck: Present: supple. Absent: lymphadenopathy (R), lymphadenopathy (L) Respiratory: Present: decreased breath sounds, No rales, No wheezing Cardiovascular/Chest: Present: regular rate, rhythm, no JVD, no murmur Abdomen: Present: Normal bowel sounds, soft, nontender, obese Extremity: Present: no calf tenderness, lower extremity edema Assessment/Plan Plan Narrative: Fozia Russell was started on flecainide over the weekend and her telemetry has been showing she has been in sinus bradycardia to normal sinus rhythm. She however still complains of shortness of breath and weakness with exertion and is wanting to see if she can have a short-term group home placement for strengthening exercises before she goes home. We will refer to physical therapy and occupational therapy. - Problems/Diagnosis (1) FERNÁNDEZ (dyspnea on exertion) Problem: Acute (2) CHF (congestive heart failure) Problem: Acute Qualifiers: Heart failure type: combined systolic and diastolic Heart failure chronicity: acute Qualified Code(s): I50.41 - Acute combined systolic (congestive) and diastolic (congestive) heart failure (3) Atrial fibrillation Problem: Acute Qualifiers: Atrial fibrillation type: paroxysmal Qualified Code(s): I48.0 - Paroxysmal atrial fibrillation (4) Hyperlipidemia Problem: Chronic Qualifiers: (5) Hypertension Problem: Chronic Qualifiers: (6) Restless legs syndrome (RLS) Problem: Chronic (7) YOSSI on CPAP Problem: Chronic (8) Morbid obesity Problem: Chronic (9) CRF (chronic renal failure) Problem: Chronic Qualifiers: (10) Diabetes mellitus Problem: Chronic Qualifiers:
[2019-01-08] MEDS: NYSTATIN 15 APPL BTL TP SCH ×2 (08:27→20:36)
[2019-01-08] MEDS: FLECAINIDE ACETATE 100 MG TABLET PO SCH ×2 (10:08→21:30)
[2019-01-08] MEDS: ALLOPURINOL 100 MG TABLET PO SCH (17:30)
[2019-01-08] MEDS ORDERED: GLIMEPIRIDE 2 MG TABLET ONE (20:34)
[2019-01-08] MEDS: SIMVASTATIN 40 MG TABLET PO SCH (20:36)
[2019-01-08] MEDS: rOPINIRole HCL 0.5 MG TABLET PO SCH (20:36)
[2019-01-08] MEDS: BENZONATATE 100 MG CAPSULE PO PRN (21:28)
[2019-01-09] MEDS: ALBUTEROL SULFATE 2.5 MG/0.5 ML VIAL.NEB IH PRN (03:35)
[2019-01-09] MEDS: ALBUTEROL SULFATE/IPRATROPIUM 3 ML NEBU IH SCH ×3 (06:00→18:13)
[2019-01-09] MEDS: INSULIN LISPRO 100 UNITS/ML VIAL SC SCH ×3 (07:02→17:03)
[2019-01-09] MEDS: LEVOTHYROXINE SODIUM 25 MCG TABLET PO SCH (07:31)
[2019-01-09] MEDS: FUROSEMIDE 40 MG TABLET PO SCH (08:01)
[2019-01-09] MEDS: POTASSIUM CHLORIDE 10 MEQ TABLET.SA PO SCH (08:01)
[2019-01-09] MEDS: APIXABAN 2.5 MG TABLET PO SCH ×2 (08:01→20:31)
[2019-01-09] MEDS: GLIMEPIRIDE 4 MG TABLET PO SCH ×2 (08:01→18:45)
[2019-01-09] MEDS: FLUTICASONE PROPIONATE 120 SPRAY INHALER NS SCH (08:02)
[2019-01-09] MEDS: METOPROLOL TARTRATE 25 MG, METOPROLOL TARTRATE 50 MG PO SCH ×2 (08:02)
[2019-01-09] MEDS: NYSTATIN 15 APPL BTL TP SCH ×2 (08:02→20:32)
[2019-01-09] MEDS: FLECAINIDE ACETATE 100 MG TABLET PO SCH ×2 (10:42→21:41)
[2019-01-09] MEDS: BENZONATATE 100 MG CAPSULE PO PRN (10:48)
--- NOTE | 2019-01-09 14:10 | PN ---
Subjective - Date and Time Seen Date: 01/09/19 Time: 14:05 Subjective Narrative: she is feeling better but still with FERNÁNDEZ which likely is multifactorial- cardiac and including morbid obesity and deconditioning. Her HR is in the 50'60's. Objective - Review of Systems Generalized/Overall Review: Reports: Weakness. Denies: Chills, Fever EENTM: Denies: Blurred Vision Respiratory: Reports: Shortness of Breath. Denies: Cough, Orthopnea Cardiac: Reports: Edema. Denies: Chest Pain, Palpitations Abdominal: Denies: Nausea, Vomiting Genitourinary Symptoms: Denies: Urgency, Frequency Musculoskeletal Complaints: Reports: Joint Pain Neurological: Denies: Headache Skin: Denies: Lesions, Rash Endocrine: Denies: Intolerance to Cold, Intolerance to Heat Misc: All systems neg except as marked - Vitals Vitals: Last Vital Signs Temp 36.3 C 01/09/19 13:14 Pulse 59 L 01/09/19 13:14 Resp 24 H 01/09/19 13:14 BP 142/61 01/09/19 13:14 Pulse Ox 96 01/09/19 13:14 - Exam Constitutional: Present: Alert, Oriented x3, Cooperative, Morbidly obese ENT Exam: Present: hearing grossly normal Neck: Present: supple Cardiovascular/Chest: Present: regular rate, rhythm, no JVD, no murmur Abdomen: Present: Normal bowel sounds, soft, nontender, nondistended Extremity: Present: no calf tenderness, lower extremity edema Assessment/Plan Plan Narrative: She has been NSR with episodes of bradycardia in the 50's. will reduce her Metorpolol to 50 mg PO BID from 75 mg BID as her fleicanide must be kicking in. She is still awaiting [place] placment for strengthening before going home. - Problems/Diagnosis (1) FERNÁNDEZ (dyspnea on exertion) Problem: Acute (2) CHF (congestive heart failure) Problem: Acute Qualifiers: Heart failure type: combined systolic and diastolic Heart failure chronicity: acute Qualified Code(s): I50.41 - Acute combined systolic (congestive) and diastolic (congestive) heart failure (3) Atrial fibrillation Problem: Acute Qualifiers: Atrial fibrillation type: paroxysmal Qualified Code(s): I48.0 - Paroxysmal atrial fibrillation (4) Hyperlipidemia Problem: Chronic Qualifiers: (5) Hypertension Problem: Chronic Qualifiers: (6) Restless legs syndrome (RLS) Problem: Chronic (7) YOSSI on CPAP Problem: Chronic (8) Morbid obesity Problem: Chronic (9) CRF (chronic renal failure) Problem: Chronic Qualifiers: (10) Diabetes mellitus Problem: Chronic Qualifiers: (11) Bradycardia Problem: Acute
[2019-01-09] MEDS: ALLOPURINOL 100 MG TABLET PO SCH (17:05)
[2019-01-09] MEDS: METOPROLOL TARTRATE 50 MG TABLET PO SCH (20:31)
[2019-01-09] MEDS: SIMVASTATIN 40 MG TABLET PO SCH (20:32)
[2019-01-09] MEDS: rOPINIRole HCL 0.5 MG TABLET PO SCH (20:32)
[2019-01-10] MEDS: ALBUTEROL SULFATE/IPRATROPIUM 3 ML NEBU IH SCH ×2 (06:13→13:08)
[2019-01-10 06:42] LABS: Anion Gap 8.1 mmol/L (6.8-13.8); BUN/Creatinine Ratio 29.1 (9.0-21.6); Calcium * 8.5 mg/dL (7.9-10.9); Carbon Dioxide 33.5 mmol/L (24-32.6); Estimated Creat Clear 25.7; Hematocrit 35.9 % (37.0-47.0); Hemoglobin 11.1 gm/dL (12.5-16.0); Mean Cell Volume 95.7 fl (78-100); Mean Corpuscular Hemoglobin 29.6 pg (27-31); Mean Corpuscular Hgb Conc 30.9 g/dl (32-36); Mean Platelet Volume 10.2 fl (8-12.5); Neutrophil # 4.9 K/mm3 (1.3-6.0); Neutrophil % 66.7 % (42-75.0); Platelet Count 234 K/mm3 (150-450); Potassium 4.6 mmol/L (3.4-4.6); Red Blood Count 3.75 M/mm3 (4.2-5.4); Red Cell Distribution Width 16.3 % (11.5-14.0); White Blood Count 7.4 K/mm3 (4.0-10.5)
[2019-01-10] MEDS: GLIMEPIRIDE 4 MG TABLET PO SCH (07:29)
[2019-01-10] MEDS: LEVOTHYROXINE SODIUM 25 MCG TABLET PO SCH (07:29)
[2019-01-10] MEDS: INSULIN LISPRO 100 UNITS/ML VIAL SC SCH ×2 (07:30→11:49)
[2019-01-10] MEDS: APIXABAN 2.5 MG TABLET PO SCH (08:15)
[2019-01-10] MEDS: FLUTICASONE PROPIONATE 120 SPRAY INHALER NS SCH (08:16)
[2019-01-10] MEDS: POTASSIUM CHLORIDE 10 MEQ TABLET.SA PO SCH (08:16)
[2019-01-10] MEDS: FUROSEMIDE 40 MG TABLET PO SCH (08:17)
[2019-01-10] MEDS: METOPROLOL TARTRATE 50 MG TABLET PO SCH (08:18)
[2019-01-10] MEDS: LISINOPRIL 2.5 MG TABLET PO SCH (08:18)
[2019-01-10] MEDS: NYSTATIN 15 APPL BTL TP SCH (08:19)
--- NOTE | 2019-01-10 09:12 | DS ---
(1) FERNÁNDEZ (dyspnea on exertion) Problem: Acute (2) CHF (congestive heart failure) Problem: Acute Qualifiers: Heart failure type: combined systolic and diastolic Heart failure chronicity: acute Qualified Code(s): I50.41 - Acute combined systolic (congestive) and diastolic (congestive) heart failure (3) Atrial fibrillation Problem: Acute Qualifiers: Atrial fibrillation type: paroxysmal Qualified Code(s): I48.0 - Paroxysmal atrial fibrillation (4) Hyperlipidemia Problem: Chronic Qualifiers: (5) Hypertension Problem: Chronic Qualifiers: (6) Restless legs syndrome (RLS) Problem: Chronic (7) YOSSI on CPAP Problem: Chronic (8) Morbid obesity Problem: Chronic (9) CRF (chronic renal failure) Problem: Chronic Qualifiers: (10) Diabetes mellitus Problem: Chronic Qualifiers: (11) Bradycardia Problem: Acute Date of Discharge:: 01/10/19 Description of Stay: Fozia Russell is a 68-year-old white female with past medical history of hypertension, hyperlipidemia, obstructive sleep apnea on CPAP, chronic renal failure stage III, diabetes mellitus type 2, atrial fibrillation who was admitted on 01/04/2019 because of increasing shortness of breath. This started about 1 month prior to admission and started getting worse when she went down to [place] to visit her mother. She was there for 3 weeks and when she got home yesterday her shortness of breath got moderate to severe and so she went to our emergency room. In the emergency room she was found to have an elevated BNP of 4448 and was in A. fib with rapid ventricular response of 123. Her troponin was less than 0.017. Her hemoglobin was 11.7, with a normal WBC count. Her BUN/creatinine was 23 and 1.44 with a GFR of 38. Her random blood sugar was 197. Her chest x-ray showed cardiomegaly and was read officially as no acute cardiopulmonary findings. She was however admitted for congestive heart failure and was given IV furosemide 40 mg x 1. Her telemetry shows her to be normal sinus rhythm with PACs at this point in time. Her echocardiogram in 01/2018 showed mild left ventricular hypertrophy, borderline reduced ejection fraction of 50%, E to E prime of 17.5% consistent with pulmonary wedge pressure of more than 20mmHg. She denied any fever, chills, coughing, chest pain but admitted to orthopnea. She wasnot sure if she gained weight but admitted to always having swelling of her legs. She does have a history of paroxysmal atrial tachycardia without suggestion of atrial flutter or atrial fibrillation and was being followed up by [facility] in 2013 with treatment consisting of flecainide and metoprolol. Her fleicianide was eventually discontinued when she went back into normal sinus rhythm. She was iduresed and her metorpolol increased to 75 mg BID. I talked to dr. porter, [facility], and he agreed with restarting her fleiciainde. She has been in sinus rhythm with sinus bradycardia since then. Her metorpolol was decreased back to 50 mg BID. She remians with FERNÁNDEZ and deconditioned. [facility] Procedures Performed: none Results and Findings: Lab Pending Results 01/04/19 05:00: WBC 9.1, RBC 4.00 L, Hgb 11.7 L, Hct 37.7, MCV 94.3, MCH 29.3, MCHC 31.0 L, RDW 16.9 H, Plt Count 218, MPV 9.3, Immature Gran % (Auto) 0.20, Immature Gran # (Auto) 0.02, Neutrophils % 63.8, Lymphocytes % 26.6, Monocytes % 6.6, Eosinophils % 2.6, Basophils % 0.2, Nucleated RBC % 0.0, Neutrophils # 5.8, Lymphocytes # 2.43, Monocytes # 0.6, Eosinophils # 0.2, Absolute Basophils 0.0 01/04/19 05:00: Sodium 141, Plasma Sodium 143 H, Potassium 3.5 D, Chloride 104, Carbon Dioxide 28.5, Anion Gap 12.0, BUN 23, Creatinine 1.44 H, Est GFR (Non-Af Amer) 38 L, BUN/Creatinine Ratio 16.0, Random Glucose 197 H, Calcium 8.9, Calcium Adj for Albumin 9.5, Total Bilirubin 0.5, AST 17, ALT 13 L, Alkaline Phosphatase 63, Troponin I Less than 0.017, B-Natriuretic Peptide 4448 H, Total Protein 7.8, Albumin 2.9 L 01/04/19 06:15: Urine Color Yellow, Urine Appearance Clear, Urine pH 6.0, Ur Specific Malone 1.015, Urine Protein 15 H, Urine Glucose (UA) Negative, Urine Ketones Negative, Urine Blood 5 H, Urine Nitrate Negative, Urine Bilirubin Negative, Prot Sulfosalicylic Acd Negative, Urine Urobilinogen Normal, Ur Leukocyte Esterase 100 H, Urine RBC 0-5, Urine WBC 10-25 H, Ur Epithelial Cells 5-10 H, Urine Bacteria Trace, Urine Culture Comments Culture to follow 01/04/19 16:10: Sodium 137, Plasma Sodium 138, Potassium 3.8, Chloride 100, Carbon Dioxide 31.8, Anion Gap 9.0, BUN 24 H, Creatinine 1.47 H, Est GFR (Non-Af Amer) 38 L, BUN/Creatinine Ratio 16.3, Random Glucose 191 H, Calcium 9.7 01/05/19 06:30: Sodium 138, Plasma Sodium 139, Potassium 4.0, Chloride 102, Carbon Dioxide 30.8, Anion Gap 9.2, BUN 29 H, Creatinine 1.45 H, Est GFR (Non-Af Amer) 38 L, BUN/Creatinine Ratio 20.0, Random Glucose 170 H, Calcium 8.8 01/06/19 05:50: Sodium 136, Plasma Sodium 137, Potassium 4.4, Chloride 98, Carbon Dioxide 34.4 H, Anion Gap 8.0, BUN 42 H, Creatinine 1.55 H, Est GFR (Non- Af Amer) 35 L, BUN/Creatinine Ratio 27.1 H, Random Glucose 184 H, Calcium 8.8, B-Natriuretic Peptide 1903 H 01/10/19 06:14: WBC 7.4, RBC 3.75 L, Hgb 11.1 L, Hct 35.9 L, MCV 95.7, MCH 29.6, MCHC 30.9 L, RDW 16.3 H, Plt Count 234, MPV 10.2, Immature Gran % (Auto) 0.50 H, Immature Gran # (Auto) 0.04 H, Neutrophils % 66.7, Lymphocytes % 21.8, Monocytes % 5.4, Eosinophils % 5.3 H, Basophils % 0.3, Nucleated RBC % 0.0, Neutrophils # 4.9, Lymphocytes # 1.61, Monocytes # 0.4, Eosinophils # 0.4, Absolute Basophils 0.0 01/10/19 06:14: Sodium 136, Plasma Sodium 137, Potassium 4.6, Chloride 99, Carbon Dioxide 33.5 H, Anion Gap 8.1, BUN 46 H, Creatinine 1.58 H, Est GFR (Non- Af Amer) 35 L, BUN/Creatinine Ratio 29.1 H, Random Glucose 165 H, Calcium 8.5 Discharge Location: [facility] Disposition: SNF Condition: Stable Level of Care: SNF Discharge Activity: Activity as tolerated Discharge Diet: Consistent carbs Care Home Therapy: Physical Therapy, Occupation Therapy Referrals: Teto Ghosh MD [Primary Care Provider] - Additional Patient Instructions (free text): -Please make TCM appointment unless detention discharge, or if following up with outside provider. Thank you! Sharla @ [facility] 4510. Call Toshia at [phone] to schedule your assessment for the waiver program after you are discharged home. Follow up with PCP in 2 weeks. Prescriptions (Any new or edited meds): Apixaban [Eliquis] 2.5 mg PO BID #60 tab Transmission Status: Pending to [facility] Flecainide Acetate [Tambocor] 50 mg PO Q12H #60 tab Transmission Status: Pending to [facility] Complete Home Medications List: Complete Home Medication List: Meclizine HCl 25 mg PO QID PRN 04/03/13 Albuterol Sulfate [Proair Hfa] 2 puff IH Q4H PRN 12/03/15 Acetaminophen [Tylenol] 1,000 mg PO Q6H PRN 11/05/16 Lisinopril [Zestril] 2.5 mg PO MOWEFR 12/07/16 ammonium lactate 12 % lotion 1 applic TP BID PRN g 10/26/17 metoclopramide HCl 10 mg tablet 10 mg PO QID PRN tab 10/26/17 artificial tears(hypromellose) 0.3 % eye gel 1 drp OP QID PRN #10 g 12/02/17 fluticasone propionate 50 mcg/actuation nasal spray,suspension 1 spray LUCIANO DAILY #9.9 g 12/02/17 furosemide 40 mg tablet 20 mg PO DAILY #30 tab 01/12/18 tramadol 50 mg tablet 50 mg PO QID PRN #120 tab 02/20/18 ropinirole 0.5 mg tablet 0.5 mg PO HS #90 tab 04/10/18 blood sugar diagnostic See Dose Instructions .ROUTE .MEDSUPPLY #100 ea NS 04/11/18 allopurinol 100 mg tablet 200 mg PO QPM #180 tab 10/05/18 metoprolol tartrate 50 mg tablet 50 mg PO BID #180 tab 10/31/18 levothyroxine 25 mcg tablet 25 mcg PO DAILY #30 tab 11/07/18 simvastatin 20 mg tablet 40 mg PO HS #90 tab 11/07/18 Glimepiride [Amaryl] 4 mg PO BID@0700,1900 01/04/19 Apixaban [Eliquis] 2.5 mg PO BID #60 tab 01/10/19 Flecainide Acetate [Tambocor] 50 mg PO Q12H #60 tab 01/10/19
[2019-01-10] MEDS: FLECAINIDE ACETATE 100 MG TABLET PO SCH (10:16)
[2019-01-10] MEDS ORDERED: INSULIN LISPRO 100 UNITS/ML VIAL SC ONE (12:01)
[2019-01-10] MEDS: ALBUTEROL SULFATE 2.5 MG/0.5 ML VIAL.NEB IH PRN (12:59)
[2019-01-10 13:31] VITALS: BP 118/76
== END 2019-01-10 13:35 | DRG 291 ==
LOC: ER 04:41 → MS 04:41
PROVIDERS: ADMIT Family Medicine; ATTEND Internal Medicine
DX: Z99.81 Dependence on supplemental oxygen; G25.81 Restless legs syndrome; Z68.43 Body mass index [BMI] 50.0-59.9, adult; E11.22 Type 2 diabetes mellitus with diabetic chronic kidney disease; I48.19 Other persistent atrial fibrillation; I50.41 Acute combined systolic (congestive) and diastolic (congestive) heart failure; E66.01 Morbid (severe) obesity due to excess calories; G47.33 Obstructive sleep apnea (adult) (pediatric); I13.0 Hypertensive heart and chronic kidney disease with heart failure and stage 1 through stage 4 chronic kidney disease, or unspecified chronic kidney disease; N18.3 Chronic kidney disease, stage 3 (moderate)
CPT/HCPCS: 36415; 71010; 71045; 80048; 80053; 81001; 83519; 83880; 84484; 85025; 87081; 87086; 93005; 94640; 94664; 94760; 96374; 96375; 96376; 97110; 97116; 97161; 97165; 97530; 97535; 99285; G0378

== ENCOUNTER 2019-11-18 00:51 | Observation (INO) ==
[2019-11-18] MEDS ORDERED: NITROGLYCERIN 0.4 MG/TAB BTL SL PRN (01:04)
[2019-11-18] MEDS ORDERED: ASPIRIN 81 MG TAB.CHEW PO ONE (01:04)
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
[2019-11-18] MEDS: METOPROLOL TARTRATE 1 MG/ML AMPUL IV SCH ×2 (01:21→05:15)
[2019-11-18 01:28] LABS: Hematocrit 34.6 % (37.0-47.0); Hemoglobin 10.7 gm/dL (12.5-16.0); Mean Cell Volume 94.8 fl (78-100); Mean Corpuscular Hemoglobin 29.3 pg (27-31); Mean Corpuscular Hgb Conc 30.9 g/dl (32-36); Mean Platelet Volume 9.6 fl (8-12.5); Neutrophil # 6.5 K/mm3 (1.3-6.0); Neutrophil % 67.1 % (42-75.0); Platelet Count 208 K/mm3 (150-450); Red Blood Count 3.65 M/mm3 (4.2-5.4); Red Cell Distribution Width 15.9 % (11.5-14.0); White Blood Count 9.7 K/mm3 (4.0-10.5)
[2019-11-18 01:42] LABS: INR 1.08 INR (0.92-1.08); Partial Thrombolplastin Time 27.7 Seconds (24-32); Prothrombin Time (Patient) 10.7 Seconds (9.1-10.7)
[2019-11-18 01:49] LABS: ALT 14 U/L (19-67); AST 13 U/L (0-48); Albumin * 2.5 gm/dl (3.4-5.0); Alkaline Phosphatase * 56 U/L (50-170); Anion Gap 7.9 mmol/L (6.8-13.8); BUN/Creatinine Ratio 14.2 (9.0-21.6); Bilirubin, Total 0.2 mg/dL (0.0-1.1); Blood Urea Nitrogen 31 mg/dL (3-23); Calcium * 9.1 mg/dL (7.9-10.9); Carbon Dioxide 34.7 mmol/L (24-32.6); Chloride 101 mmol/L (97-106); Glucose * 261 mg/dL (70-110); Potassium 4.6 mmol/L (3.4-4.6); Sodium 139 mmol/L (132-142); Total Protein 6.9 gm/dL (6.2-8.2); Troponin I Less than 0.017 ng/mL (0.00-0.10)
[2019-11-18] MEDS ORDERED: MORPHINE SULFATE 4 MG/ML SYRG IV PRN (02:25)
[2019-11-18] MEDS ORDERED: ONDANSETRON HCL/PF 2 MG/ML VIAL IV ONE (02:25)
[2019-11-18] MEDS ORDERED: FUROSEMIDE 10 MG/ML VIAL IV ONE ×2 (02:53→09:48)
[2019-11-18] MEDS ORDERED: MORPHINE SULFATE 2 MG/ML DISP.SYRIN IV PRN ×2 (07:15→11:11)
[2019-11-18] MEDS ORDERED: LORazepam 0.5 MG TABLET PO PRN (09:20)
[2019-11-18] MEDS ORDERED: ALBUTEROL SULFATE 2.5 MG/0.5 ML VIAL.NEB IH PRN (09:20)
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
[2019-11-18] MEDS: METOPROLOL TARTRATE 50 MG TABLET PO SCH ×2 (10:00→20:13)
[2019-11-18] MEDS: LEVOTHYROXINE SODIUM 25 MCG TABLET PO SCH (10:00)
[2019-11-18] MEDS: APIXABAN 2.5 MG TABLET PO SCH ×2 (10:00→20:13)
[2019-11-18] MEDS: Liraglutide [Victoza 2-Pak] 1.2 MG SC SCH (10:02)
[2019-11-18] MEDS ORDERED: carBAMazepine 100 MG TAB.CHEW PO SCH (10:30)
--- NOTE | 2019-11-18 10:39 | PN ---
Progess Note - Interim Date: 11/18/19 Time: 10:38 Narrative: 11/18/19 10:38 Will not start carbemazepine due to multiple medication interactions.
[2019-11-18] MEDS: INSULIN LISPRO 100 UNITS/ML VIAL SC SCH ×3 (11:35→20:17)
[2019-11-18] MEDS ORDERED: ALLOPURINOL 100 MG TABLET PO SCH (17:00)
[2019-11-18] MEDS ORDERED: INSULIN GLARGINE,HUM.REC.ANLOG 100 UNITS/ML VIAL SC SCH (21:00)
[2019-11-19] MEDS: INSULIN LISPRO 100 UNITS/ML VIAL SC SCH (07:27)
[2019-11-19] MEDS: LEVOTHYROXINE SODIUM 25 MCG TABLET PO SCH (07:27)
--- NOTE | 2019-11-19 08:32 | DS ---
Date of Discharge:: 11/19/19 Hospital Course: Fozia Layne a 68-year-old white female with extensive past medical history including diabetes, hypertension, paroxysmal A. fib, LVH, diastolic dysfunction, morbid obesity, stage III chronic renal disease, recent NSTEMI presented with left-sided chest pain and arm pain. Her chest pain did not respond to 2 nitros and she called 911. Her has stage IV prostate cancer and was recently put on hospice, and she is under increased stress at home. In the ED, work-up did not find anything acute. She was admitted for serial troponins and EKGs. On my assessment, she reports her chest pain is a 1 out of 10. Her follow-up EKG and troponin were negative. She still is compla ining of a headache. She was going to be started on carbamazepine but because of the multiple drug interactions this was not initiated. She denied she is chest pain-free today fever, appetite change, constipation, diarrhea. She does have some skin wounds on her lower extremities that are also at their baseline.. She was given 2 doses of IV Lasix at 40 mg each. She is -380 mL liters today. Her creatinine bumped up from 2.09-2.19. Her leg edema is about the same. We will discharge her today and will make an follow-up appointment with nephrology on discharge. She already has a follow-up cardiology appointment in November 26. She has a follow-up appointment with physical therapy for her cervicalgia which I think is causing her headache. If her physical therapy does not help her we may have to consider Lyrica or carbamazepine versus injection Procedures Performed: none Results and Findings: Lab Pending Results 11/18/19 01:25: WBC 9.7, RBC 3.65 L, Hgb 10.7 L, Hct 34.6 L, MCV 94.8, MCH 29.3, MCHC 30.9 L, RDW 15.9 H, Plt Count 208, MPV 9.6, Immature Gran % (Auto) 0.30, Immature Gran # (Auto) 0.03, Neutrophils % 67.1, Lymphocytes % 22.7, Monocytes % 5.3, Eosinophils % 4.4 H, Basophils % 0.2, Nucleated RBC % 0.0, Neutrophils # 6.5 H, Lymphocytes # 2.21, Monocytes # 0.5, Eosinophils # 0.4, Absolute Basophils 0.0 11/18/19 01:25: PT 10.7, INR (Anticoag Therapy) 1.08, PTT (Ham) 27.7 11/18/19 01:25: Sodium 139, Plasma Sodium 142, Potassium 4.6, Chloride 101, Carbon Dioxide 34.7 H, Anion Gap 7.9, BUN 31 H, Creatinine 2.19 H, Est GFR (Non- Af Amer) 24 L, BUN/Creatinine Ratio 14.2, Random Glucose 261 H D, Calcium 9.1, Calcium Adj for Albumin 10.0, Total Bilirubin 0.2, AST 13, ALT 14 L, Alkaline Phosphatase 56, Troponin I Less than 0.017, Total Protein 6.9, Albumin 2.5 L 11/18/19 07:00: Troponin I Less than 0.017 11/18/19 13:25: Troponin I Less than 0.017 Discharge Location: Home Disposition: Home self-care Condition: Stable Discharge Activity: Activity as tolerated Discharge Diet: Consistent carbs, Low salt Referrals: Teto Ghosh MD [Primary Care Provider] - Additional Patient Instructions (free text): Follow-up with nephrology. Follow-up with me in 2 weeks time. Complete Home Medications List: Complete Home Medication List: Meclizine HCl 25 mg PO QID PRN 04/03/13 Albuterol Sulfate [Proair Hfa] 2 puff IH Q4H PRN 12/03/15 Acetaminophen [Tylenol] 1,000 mg PO Q6H PRN 11/05/16 Lisinopril [Zestril] 2.5 mg PO MOWEFR 12/07/16 ammonium lactate 12 % lotion 1 applic TP BID PRN g 10/26/17 artificial tears(hypromellose) 0.3 % eye gel 1 drp OP QID PRN #10 g 12/02/17 tramadol 50 mg tablet 50 mg PO QID PRN #120 tab 02/20/18 blood sugar diagnostic See Dose Instructions .ROUTE .MEDSUPPLY #100 ea NS 04/11/18 Durable Medical Equipment 0 .ROUTE .MEDSUPPLY #1 ea 03/26/19 blood sugar diagnostic See Rx Instructions .ROUTE .MEDSUPPLY #100 ea 05/01/19 metoclopramide HCl 10 mg tablet 10 mg PO QID PRN #60 tab 05/01/19 ropinirole 0.5 mg tablet 0.5 mg PO HS #90 tab 05/09/19 pen needle, diabetic 31 gauge x 07/20" See Rx Instructions .ROUTE .MEDSUPPLY #100 ea 07/01/19 glucose 4 gram chewable tablet 4 g PO Q15M PRN #30 tab 07/10/19 allopurinol 100 mg tablet 200 mg PO QPM #180 tab 08/27/19 levothyroxine 25 mcg tablet 25 mcg PO DAILY #30 tab 08/27/19 metoprolol tartrate 50 mg tablet 50 mg PO BID #180 tab 09/21/19 fluticasone propionate 50 mcg/actuation nasal spray,suspension 1 spray LUCIANO DAILY #9.9 g 10/01/19 apixaban 2.5 mg tablet See Rx Instructions .ROUTE .COMPLEX #60 unknown measurement unit code: tablet 10/03/19 insulin glargine 100 unit/mL (3 mL) subcutaneous pen 20 unit SUBCUT .PM #15 ml 10/10/19 simvastatin 40 mg tablet See Rx Instructions .ROUTE .COMPLEX #30 unknown measurement unit code: tablet 10/19/19 lorazepam 0.5 mg tablet 0.5 mg PO BID PRN #28 tab 10/29/19 liraglutide 0.6 mg/0.1 mL (18 mg/3 mL) subcutaneous pen injector 1.2 mg SUBCUT DAILY #6 ml 11/02/19 potassium chloride 10 mEq tablet,extended release See Rx Instructions .ROUTE .COMPLEX #30 unknown measurement unit code: tablet 11/06/19 furosemide 40 mg tablet See Rx Instructions .ROUTE .COMPLEX unknown measurement unit code: tablet 11/16/19 Forms: Patient Portal Registration
[2019-11-19] MEDS ORDERED: LISINOPRIL 2.5 MG TABLET PO SCH (09:00)
[2019-11-19] MEDS ORDERED: FUROSEMIDE 80 MG, FUROSEMIDE 20 MG PO SCH ×2 (09:00)
[2019-11-19] MEDS: METOPROLOL TARTRATE 50 MG TABLET PO SCH (09:17)
[2019-11-19] MEDS: APIXABAN 2.5 MG TABLET PO SCH (09:17)
[2019-11-19] MEDS: Liraglutide [Victoza 2-Pak] 1.2 MG SC SCH (09:18)
[2019-11-19 09:38] VITALS: BP 147/77
[2019-11-19] MEDS ORDERED: FUROSEMIDE 40 MG TABLET PO SCH (10:00)
[2019-11-20] MEDS ORDERED: FUROSEMIDE 80 MG TABLET PO SCH (09:00)
== END 2019-11-19 10:30 | disposition home or self-care (01) ==
LOC: MS 00:51 → ER 00:51 → MS 03:55
PROVIDERS: ADMIT Family Medicine; ATTEND Internal Medicine